=== PATIENT | female | born 1960 | race African-American/Black ===

== ENCOUNTER 2017-06-23 20:19 | Emergency (ER) | payer SELFPAY ==
[~2017-06-23] VITALS: Ht 160 cm; Wt 49.4 kg
[~2017-06-23 20:19] MED LIST: BACTRIM DS TAB1 EAC1 ORAL; CLARITHROMYCIN500 M1 PO; DIFLUCAN150 MG PO; IBUPROFEN600 MG ORAL; KEFLEX500 MG ORAL; NKM; PHENAZOPYRIDIN100 MG ORAL; PREDNISONE20 MG PO
[2017-06-23 20:40] VITALS: BP 156/65
[2017-06-23] MEDS ORDERED: AZITHROMYCIN250 MG ORAL (21:04)
[2017-06-23] MEDS ORDERED: IBUPROFEN600 MG ORAL (21:04)
[2017-06-23 21:16] VITALS: BP 156/65
--- NOTE | 2017-06-25 10:04 | Emergency Room Report ---
History of Present Illness General Chief Complaint: Fever Source: Patient Present Illness HPI 57-year-old female presents to ED for planning of fever bodyaches and throat pain starting this morning. Temp was over 102 in triage. Patient complains of sore throat and bodyaches. Pain is an 8 and 10, throbbing, nonradiating. Denies cough, denies ear ache. I sick contacts or recent travel. No other aggravating or relieving factors. Denies any other associated symptoms Allergies: Coded Allergies: PENICILLINS (Verified Allergy, Mild, Hallucinations, 10/02/12) Patient History Past Medical History: none Past Surgical History: none Pertinent Family History: none Social History: Denies: smoking, alcohol use, drug use Last Menstrual Period: 10 years ago Now: No Immunizations: UTD Reviewed Nursing Documentation: PMH: Agreed, PSxH: Agreed Nursing Documentation-PMH Past Medical History: No Stated History Review of Systems All Other Systems: negative except mentioned in HPI Physical Exam Vital Signs Date Time Temp Pulse Resp B/P (MAP) Pulse Ox O2 Delivery O2 Flow Rate FiO2 06/23/17 20:29 102.6 90 20 156/65 99 Room Air Sp02 EP Interpretation: reviewed, normal General Appearance: no apparent distress, alert, GCS 15, non-toxic Head: normocephalic, atraumatic Eyes: bilateral eye normal inspection, bilateral eye PERRL ENT: hearing grossly normal, no angioedema, normal voice, TMs + canals normal, pharyngeal erythema Neck: full range of motion, supple/symm/no masses Respiratory: chest non-tender, lungs clear, normal breath sounds, speaking full sentences Cardiovascular #1: regular rate, rhythm, no edema Cardiovascular #2: 2+ carotid (R), 2+ carotid (L), 2+ radial (R), 2+ radial (L) , 2+ dorsalis pedis (R), 2+ dorsalis pedis (L) Gastrointestinal: normal bowel sounds, non tender, soft, non-distended, no guarding, no rebound Rectal: deferred Genitourinary: normal inspection, no CVA tenderness Musculoskeletal: back normal, gait/station normal, normal range of motion, non- tender Neurologic: alert, oriented x3, responsive, motor strength/tone normal, sensory intact, speech normal Psychiatric: judgement/insight normal, memory normal, mood/affect normal, no suicidal/homicidal ideation Reflexes: 3+ bicep (R), 3+ bicep (L), 3+ tricep (R), 3+ tricep (L), 3+ knee (R) , 3+ knee (L) Skin: normal color, no rash, warm/dry, well hydrated Lymphatic: no adenopathy Medical Decision Making Diagnostic Impression: Primary Impression: Pharyngitis Qualified Codes: J02.9 - Acute pharyngitis, unspecified ER Course Hospital Course 57-year-old female presents to ED complaining of sore throat + fever Differential diagnoses include: URI, pharyngitis, otitis media Clinical course Patient placed on stretcher. After initial history, physical exam reveals a middle aged female in no acute distress. Bilateral TM unremarkable. There is pharyngeal erythema w/o tonsillar exudates. No lymphadenopathy. Clinical findings consistent with pharyngitis. Reassurance given to parents Given motrin ED for fever Diagnosis - pharyngitis Stable and discharged home with prescriptions for glenn Burns. Instructed to followup with PMD. return to ED if symptoms recur or worsen Last Vital Signs Date Time Temp Pulse Resp B/P (MAP) Pulse Ox O2 Delivery O2 Flow Rate FiO2 06/23/17 21:16 102.6 20 156/65 99 Room Air 06/23/17 20:29 90 Status: improved Disposition: HOME, SELF-CARE Condition: Stable Scripts Azithromycin* (ZITHROMAX*) 250 Mg Tablet 250 MG ORAL DAILY, #6 TAB 0 Refills Take two tablets by mouth today, then take one tablet by mouth daily for four days Prov: DRE MORRISSEY M.D. 06/23/17 Ibuprofen* (MOTRIN*) 600 Mg Tablet 600 MG ORAL Q8H Y for For Pain, #30 TAB 0 Refills Prov: DRE MORRISSEY M.D. 06/23/17 Referrals: NON PHYSICIAN (PCP) Patient Instructions: Pharyngitis, [id number] DRE MORRISSEY M.D. Jun 25, 2017 10:04
== END 2017-06-23 21:16 | disposition home or self-care (01) ==
LOC: EMR 21:10
DX: J02.9 Acute pharyngitis, unspecified (principal); Z88.0 Allergy status to penicillin
CPT/HCPCS: 99283

== ENCOUNTER 2017-08-26 16:36 | Emergency (ER) | payer SELFPAY ==
[~2017-08-26] VITALS: Ht 157.5 cm; Wt 48.5 kg
[~2017-08-26 16:36] MED LIST changes: +AZITHROMYCIN250 MG ORAL
[2017-08-26] MEDS ORDERED: Ketorolac 60mg Inj IM ONE (18:00)
[2017-08-26] MEDS ORDERED: Metoclopramide 10mg/2ml Inj IM ONE (18:00)
[2017-08-26] MEDS ORDERED: DiphenhydrAMINE 50mg/ml Inj IM ONE (18:00)
[2017-08-26] MEDS ORDERED: NAPROXEN500 M2 ORAL (18:27)
[2017-08-26] MEDS ORDERED: ROBAXIN-750750 MG PO (18:27)
[2017-08-26 18:45] VITALS: BP 128/85
--- NOTE | 2017-08-26 19:22 | Emergency Room Report ---
History of Present Illness General Chief Complaint: Headache Source: Patient Present Illness HPI The patient is a 57-year-old female presenting for headache for the past week. She states that she woke up with the pain and it has continued. Pain is a 9/10 dull ache primarily to the left side of the head. She denies any injury to the area. She denies being awoken by the pain. She has not used any pain medications. She denies any other symptoms including nausea, vomiting, fever, chills, neck stiffness, rash, dizziness, blurred vision Allergies: Coded Allergies: PENICILLINS (Verified Allergy, Mild, Hallucinations, 10/02/12) Patient History Past Medical History: see triage record Pertinent Family History: none Reviewed Nursing Documentation: PMH: Agreed, PSxH: Agreed Nursing Documentation-PMH Past Medical History: No Stated History Review of Systems All Other Systems: negative except mentioned in HPI Physical Exam Vital Signs Date Time Temp Pulse Resp B/P (MAP) Pulse Ox O2 Delivery O2 Flow Rate FiO2 08/26/17 16:40 98.1 64 16 131/74 100 Room Air Sp02 EP Interpretation: reviewed, normal General Appearance: no apparent distress, alert, GCS 15, non-toxic Head: normocephalic, atraumatic Eyes: bilateral eye normal inspection, bilateral eye PERRL ENT: hearing grossly normal, normal pharynx, no angioedema, normal voice Neck: full range of motion, no bony tend, supple/symm/no masses, tender lateral - L Respiratory: chest non-tender, lungs clear, normal breath sounds, speaking full sentences Cardiovascular #1: regular rate, rhythm, no edema Musculoskeletal: back normal, gait/station normal, normal range of motion, non- tender Neurologic: alert, oriented x3, responsive, motor strength/tone normal, sensory intact, speech normal Psychiatric: judgement/insight normal, memory normal, mood/affect normal, no suicidal/homicidal ideation Skin: normal color, no rash, warm/dry, well hydrated Medical Decision Making PA Attestation Dr. Brito is my supervising physician. Patient management was discussed with my supervising physician Diagnostic Impression: Primary Impression: Muscle strain Additional Impression: Headache Qualified Codes: R51 - Headache ER Course The patient is a 57-year-old female presenting for headache for the past week Differential diagnoses include but not limited to Migraine, tension headache, hemorrhage, arteritis, muscle strain, among others PE: Afebrile. NAD HEENT: There is tenderness to palpation over the left frontal scalp. No deformity. No visible vessel. No crepitus. No depression. PERRL EOMI There is tenderness to palpation over the left cervical paraspinal muscles. Full active range of motion is intact. No rigidity. No midline tenderness CT scan of head is unremarkable The patient is given IM Toradol, Reglan, and Benadryl. She will be discharged with prescription for Robaxin and naproxen. ER precautions are given CT/MRI/US Diagnostic Results CT/MRI/US Diagnostic Results : Imaging Test Ordered: CT head Impression Unremarkable Last Vital Signs Date Time Temp Pulse Resp B/P (MAP) Pulse Ox O2 Delivery O2 Flow Rate FiO2 08/26/17 18:45 98.4 65 18 128/85 100 Room Air Status: improved Disposition: HOME, SELF-CARE Condition: Improved Scripts Naproxen* (NAPROXEN*) 500 Mg Tablet 500 MG ORAL TWICE A WEEK, #30 TAB 0 Refills Prov: CHAN HERRING 08/26/17 Methocarbamol* (ROBAXIN-750*) 750 Mg Tablet 750 MG PO TID, #21 TAB 0 Refills Prov: CHAN HERRING 08/26/17 Patient Instructions: General Headache Without Cause, Muscle Strain Additional Instructions: I discussed my findings with the patient. All questions and concerns have been answered. Treatment and medication compliance have been addressed. I advised the patient that they need to follow up with PMD in 3-5 days. Return to ED if symptoms worsen, new symptoms arise, or if needed for any reason. Patient verbalized understanding of discharge instructions. CHAN HERRING Aug 26, 2017 19:22
--- NOTE | 2017-08-27 10:21 | Diagnostic Imaging Report ---
Indication: Headache Technique: Contiguous 5 mm thick transaxial imaging of the head obtained in a Siemens Sensation [address] scanner. Soft tissue and bone windows generated. Automatic Exposure Control was utilized. Total Dose length Product (DLP): [address] Dose Index Volume (CTDIvol): 70.38, 0.15 mGy Comparison: none Findings: The size and configuration of the cortical sulci, basal cisterns, and ventricles are within normal limits for age. There is no mass effect, midline shift, or edema identified. There is no evidence of acute hemorrhage or abnormal intra-axial or extra-axial fluid collections. The bones and soft tissues are unremarkable. Impression: No mass effect, edema or acute bleed. [facility] has communicated the preliminary results to the Emergency Department. Their findings are largely concordant with this report. The CT scanner at [facility] is accredited by the [employer] and the scans are performed using dose optimization techniques as appropriate to a performed exam including Automatic Exposure control.
[2017-08-27] MEDS ORDERED: CYCLOBENZAPRINE10 MG ORAL (12:24)
== END 2017-08-26 18:45 | disposition home or self-care (01) ==
LOC: EMR 18:12
DX: T14.8XXA Other injury of unspecified body region, initial encounter (principal); X58.XXXA Exposure to other specified factors, initial encounter; R51 Headache; Z88.0 Allergy status to penicillin
CPT/HCPCS: 70450; 96372; 99284; J1200; J2765

== ENCOUNTER 2019-04-10 14:21 | Emergency (ER) | payer MEDICAID ==
[~2019-04-10] VITALS: Ht 160 cm; Wt 49.9 kg
[~2019-04-10 14:21] MED LIST changes: +CYCLOBENZAPRINE10 MG ORAL; +NAPROXEN500 M2 ORAL; +ROBAXIN-750750 MG PO
[2019-04-10 15:00] VITALS: BP 138/79
--- NOTE | 2019-04-10 15:00 | NUR ---
ED Nurse Note: pt walked in due to right lateral abdominal pain started 6 daysa go. denies trauma, denies nvd. pt was seen by jalyn herman. pt able to give urine sample and blood drawn and sent to lab. will continue to monitor
--- NOTE | 2019-04-10 15:04 | NUR ---
ED Nurse Note: xray on bedside
[2019-04-10 15:27] LABS: APPEARANCE,URINE CLEAR; BILIRUBIN, URINE NEGATIVE (NEGATIVE); COLOR,URINE PALE YELLOW; GLUCOSE, URINE (UA) NEGATIVE (NEGATIVE); KETONES,URINE NEGATIVE (NEGATIVE); LEUKOCYTE ESTERASE ,URINE 1+ (NEGATIVE); NITRITE,URINE NEGATIVE (NEGATIVE); PH,URINE 5 (4.5-8.0); PROTEIN,URINE NEGATIVE (NEGATIVE); UROBILINOGEN,URINE NORMAL MG/DL (0.0-1.0)
--- NOTE | 2019-04-10 15:31 | Diagnostic Imaging Report ---
Indication: Chest pain Comparison: 07/04/2009 A single view chest radiograph was obtained. Findings: Cardiomediastinal appearance is within normal limits for age. The lungs are clear. Pulmonary vascularity is appropriate. The diaphragmatic contour is smooth and costophrenic angles are sharp. No pleural effusions are identified. The bones are unremarkable. Impression: No acute findings
[2019-04-10 15:32] LABS: BASOPHILS % (AUTO) 1.1 % (0.0-2.0); EOSINOPHILS % (AUTO) 6.5 % (0.0-3.0); HEMOGLOBIN 16.6 G/DL (12.0-16.0); LYMPHOCYTES % (AUTO) 24.1 % (20.0-45.0); MEAN CORPUSCULAR VOLUME 88 FL (80-99); MONOCYTES % (AUTO) 9.2 % (1.0-10.0); NEUTROPHILS % (AUTO) 59.1 % (45.0-75.0); PLATELET COUNT 329 K/UL (150-450); RED BLOOD COUNT 5.71 M/UL (4.20-5.40); RED CELL DISTRIBUTION WIDTH 12.2 % (11.6-14.8); WHITE BLOOD COUNT 9.8 K/UL (4.8-10.8)
[2019-04-10 15:40] LABS: ANION GAP 9 mmol/L (5-15); BLOOD UREA NITROGEN 9 mg/dL (7-18); CALCIUM 8.2 MG/DL (8.5-10.1); CARBON DIOXIDE 25 MMOL/L (21-32); CHLORIDE 107 MMOL/L (98-107); CREATININE 0.7 MG/DL (0.55-1.30); POTASSIUM 4.1 MMOL/L (3.5-5.1); SODIUM 141 MMOL/L (136-145)
[2019-04-10 15:49] LABS: ALANINE AMINOTRANSFERASE 15 U/L (12-78); ALBUMIN 4.1 G/DL (3.4-5.0); ALBUMIN/GLOBULIN RATIO 1.6 (1.0-2.7); ALKALINE PHOSPHATASE 34 U/L (46-116); ASPARTATE AMINO TRANSFERASE 13 U/L (15-37); BILIRUBIN,TOTAL 0.2 MG/DL (0.2-1.0); CKMB 0.7 NG/ML (0.0-3.6); CREATINE KINASE 73 U/L (26-308)
[2019-04-10] MEDS ORDERED: Isovue-300 100ml vial INJ PRN (16:15)
--- NOTE | 2019-04-10 16:35 | NUR ---
ED Nurse Note: pt went to ct with tech
--- NOTE | 2019-04-10 16:45 | NUR ---
ED Nurse Note: pt went back from ct
[2019-04-10] MEDS ORDERED: NAPROXEN500 M2 ORAL (17:25)
--- NOTE | 2019-04-10 17:25 | Emergency Room Report ---
History of Present Illness General Chief Complaint: Pain Source: Medical Record Present Illness HPI 58-year-old female with a history of tobacco smoke here complaining of right- sided chest pain without radiation x4 days. Patient reports that chest pain started at rest denying strenuous physical activity and shortness of breath. Rating the pain 3 out of 10 without radiation has not taken medication for pain denying tingling and numbness. Denies dizziness, headache, syncope, abdominal pain, nausea vomiting. Patient reports that she drinks and eats a lot of spicy food and has been a heavy tobacco smoker for years. Patient reports that she occasionally drinks alcohol however is not a daily alcohol drinker. Denies use of illicit drugs. Allergies: Coded Allergies: PENICILLINS (Verified Allergy, Mild, Hallucinations, 10/02/12) Patient History Past Medical History: see triage record Past Surgical History: unable to obtain Pertinent Family History: unable to obtain Last Menstrual Period: menopause Now: No Immunizations: UTD Reviewed Nursing Documentation: PMH: Agreed; PSxH: Agreed Nursing Documentation-PMH Past Medical History: No History, Except For Review of Systems All Other Systems: negative except mentioned in HPI Physical Exam Vital Signs Date Time Temp Pulse Resp B/P (MAP) Pulse Ox O2 Delivery O2 Flow Rate FiO2 04/10/19 14:28 98.4 70 18 138/79 (98) 97 Room Air Sp02 EP Interpretation: reviewed, normal General Appearance: normal inspection, well appearing, no apparent distress Head: normocephalic Eyes: bilateral eye normal inspection, bilateral eye PERRL ENT: normal ENT inspection, hearing grossly normal Neck: normal inspection, full range of motion, supple Respiratory: normal inspection, chest non-tender, lungs clear, no rhonchi, no wheezing Cardiovascular #1: normal inspection, normal peripheral pulses, regular rate, rhythm, no murmur Gastrointestinal: normal inspection, non tender, soft, no mass, no peritonitis , no bruit Genitourinary: no CVA tenderness Musculoskeletal: normal inspection, back normal, digits/nails normal, non- tender Neurologic: normal inspection, alert, oriented x3, responsive Psychiatric: normal inspection, judgement/insight normal Skin: no rash Lymphatic: normal inspection, no adenopathy Medical Decision Making PA Attestation All my diagnosis and treatment plans were reviewed ad discussed with my supervising physician Dr. Hernández Diagnostic Impression: Primary Impression: Renal stone Additional Impression: Colitis ER Course 58-year-old female with a history of tobacco smoke here complaining of right- sided chest pain without radiation x4 days. Patient reports that chest pain started at rest denying strenuous physical activity and shortness of breath. Rating the pain 3 out of 10 without radiation has not taken medication for pain denying tingling and numbness. Denies dizziness, headache, syncope, abdominal pain, nausea vomiting. Patient reports that she drinks and eats a lot of spicy food and has been a heavy tobacco smoker for years. Patient reports that she occasionally drinks alcohol however is not a daily alcohol drinker. Denies use of illicit drugs. Ddx considered but are not limited to: [place], Angina, COPD, GERD, gastritis, colitis, renal stone Vital signs: are WNL, pt. is afebrile H&PE are most consistent with infectious colitis, renal stone ORDERS: EKG, Chest XR, cardiac labs(troponin, CBC, CMP, abdominal CT, naproxen, Flagyl, Cipro ED INTERVENTIONS: None required at this time. DISCHARGE: At this time pt. is stable for d/c to home. Will provide printed patient care instructions, and any necessary prescriptions. Care plan and follow up instructions have been discussed with the patient prior to discharge. I advised the patient to reduce tobacco smoke as well as taking the medication and follow-up with primary care provider for further investigation and also possible referral to legal assistant. Elevated hemoglobin and hematocrit most likely secondary to tobacco smoke EKG Diagnostic Results Rate: normal Rhythm: NSR ST Segments: no acute changes Chest X-Ray Diagnostic Results Chest X-Ray Diagnostic Results : Chest X-Ray Ordered: Yes # of Views/Limited/Complete: 1 View Indication: Chest Pain EP Interpretation: Yes PA Xray: Interpretation reviewed, by supervising MD, and agrees with findings. Interpretation: no consolidation, no effusion, no pneumothorax Impression: No acute disease Electronically Signed by: dimitri levy PA-C CT/MRI/US Diagnostic Results CT/MRI/US Diagnostic Results : Imaging Test Ordered: abd CT no contrast Impression PELVIS: Appendix: No findings to suggest acute appendicitis. Bladder: Unremarkable. No mass. Reproductive: Unremarkable as visualized. ABDOMEN and PELVIS: Intraperitoneal space: Unremarkable. No free air. No significant fluid collection. Bones/joints: No acute fracture. No dislocation. Soft tissues: Unremarkable. Vasculature: Scattered abdominal arterial calcifications without aneurysm or evidence of flow-limiting stenosis. Lymph nodes: Unremarkable. No enlarged lymph nodes. IMPRESSION: Acute diffuse colitis without bowel obstruction or perforation. Radiologist: Fuad Thomson MD Electronically Signed: 04/10/19 18:16 Last Vital Signs Date Time Temp Pulse Resp B/P (MAP) Pulse Ox O2 Delivery O2 Flow Rate FiO2 04/10/19 15:00 98.4 70 18 138/79 97 Room Air Disposition: HOME, SELF-CARE Condition: Stable Scripts Metronidazole* (FLAGYL*) 500 Mg Tablet 500 MG ORAL EVERY 8 HOURS for 7 Days, #21 TAB Prov: Dimitri Camacho 04/10/19 Ciprofloxacin* (CIPRO*) 500 Mg Tablet 500 MG PO BID for 7 Days, #14 TAB Prov: Dimitri Camacho 04/10/19 Naproxen* (NAPROXEN*) 500 Mg Tablet 500 MG ORAL TWICE A DAY, #30 TAB Prov: Dimitri Camacho 04/10/19 Patient Instructions: Colitis, Kidney Stones, [id number] Additional Instructions: Avoid smoking and eating spicy food at that can be the cause of your colitis. At this time the size of the renal stone is small and can be possible however follow-up with your primary care physician for referral to urologist. Take medication as directed avoid strenuous physical activity if worsening symptoms return to the emergency room Dimitri Camacho Apr 10, 2019 17:24
[2019-04-10 17:26] VITALS: BP 125/81
[2019-04-10 17:34] VITALS: BP 125/81
--- NOTE | 2019-04-10 17:34 | NUR ---
ER DISCHARGE NOTE: Patient is cleared to be discharged per ERMD, pt is aox4, on room air, with stable vital signs. pt was given dc and prescription instructions, pt was able to verbalize understanding, pt id band and iv site removed without complications. pt is able to ambulate with steady gait. pt took all belongings.
--- NOTE | 2019-04-10 18:17 | Diagnostic Imaging Report ---
EXAM: CT Abdomen and Pelvis With Intravenous Contrast CLINICAL HISTORY: PAIN TECHNIQUE: Axial computed tomography images of the abdomen and pelvis with intravenous contrast. CTDI is 449.85 mGy and DLP is 449 mGy-cm. One or more of the following dose reduction techniques were used: automated exposure control, adjustment of the mA and/or kV according to patient size, use of iterative reconstruction technique. COMPARISON: none FINDINGS: Lung bases: Unremarkable. No mass. No consolidation. ABDOMEN: Liver: Unremarkable. No mass. Gallbladder and bile ducts: Unremarkable. No calcified stones. No ductal dilation. Pancreas: Unremarkable. No mass. No ductal dilation. Spleen: Unremarkable. No splenomegaly. Adrenals: Unremarkable. No mass. Kidneys and ureters: Nonobstructing 5 mm stone in the inferior pole right kidney. Stomach and bowel: Colonic spasm with wall thickening and mesenteric hyperemia compatible with acute colitis. No obstruction. PELVIS: Appendix: No findings to suggest acute appendicitis. Bladder: Unremarkable. No mass. Reproductive: Unremarkable as visualized. ABDOMEN and PELVIS: Intraperitoneal space: Unremarkable. No free air. No significant fluid collection. Bones/joints: No acute fracture. No dislocation. Soft tissues: Unremarkable. Vasculature: Scattered abdominal arterial calcifications without aneurysm or evidence of flow-limiting stenosis. Lymph nodes: Unremarkable. No enlarged lymph nodes. IMPRESSION: Acute diffuse colitis without bowel obstruction or perforation. <MYCVCSECTION> [employer] 04/10/19 18:23 Verify Receipt Verified receipt with [employer] given to Edgar LAY on 04/10 18:23 (-07:00)
[2019-04-10] MEDS ORDERED: CIPRO500 MG PO ×3 (18:29→19:24)
[2019-04-10] MEDS ORDERED: METRONIDAZOLE500 MG ORAL ×3 (18:29→19:24)
== END 2019-04-10 17:34 | disposition home or self-care (01) ==
LOC: EMR 17:30
DX: N20.0 Calculus of kidney (principal); K52.9 Noninfective gastroenteritis and colitis, unspecified; F17.200 Nicotine dependence, unspecified, uncomplicated; Z88.0 Allergy status to penicillin
CPT/HCPCS: 36415; 71045; 74177; 80053; 80307; 81003; 82550; 82553; 83690; 84484; 85025; 85610; 85730; 86850; 86900; 86901; 93005; 99284; Q9967

== ENCOUNTER 2019-05-06 09:31 | Emergency (ER) | payer MEDICAID ==
[~2019-05-06] VITALS: Ht 160 cm; Wt 49.9 kg
[~2019-05-06 09:31] MED LIST changes: +CIPRO500 MG PO; +METRONIDAZOLE500 MG ORAL
[2019-05-06 09:34] VITALS: BP 133/74
--- NOTE | 2019-05-06 09:40 | NUR ---
ED Nurse Note: Patient walked into ED from home c/o abdominal pain and diarrhea for "a couple of weeks." patient [place] [facility] for same symptoms. patient placed in a gown, provided 4 blankets. patient is alert awake x4 ambulatory steady gait. patient is breathing even and unlabored.
[2019-05-06] MEDS ORDERED: Dicyclomine HCl 10mg/5ml oral soln ORAL ONE (10:15)
[2019-05-06] MEDS ORDERED: Lidocaine 2% Visc 15ml soln ORAL ONE (10:15)
--- NOTE | 2019-05-06 10:53 | NUR ---
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 patient reports her abdominal pain is still there on the right side, will give a little bit more time for the medication to work.
[2019-05-06 11:42] LABS: BASOPHILS % (AUTO) 1.1 % (0.0-2.0); EOSINOPHILS % (AUTO) 8.6 % (0.0-3.0); HEMATOCRIT 48.6 % (37.0-47.0); HEMOGLOBIN 15.8 G/DL (12.0-16.0); LYMPHOCYTES % (AUTO) 25.4 % (20.0-45.0); MEAN CORPUSCULAR VOLUME 88 FL (80-99); MONOCYTES % (AUTO) 7.9 % (1.0-10.0); PLATELET COUNT 342 K/UL (150-450); RED BLOOD COUNT 5.55 M/UL (4.20-5.40); RED CELL DISTRIBUTION WIDTH 12.3 % (11.6-14.8); WHITE BLOOD COUNT 9.8 K/UL (4.8-10.8)
[2019-05-06 11:43] LABS: APPEARANCE,URINE CLEAR; BILIRUBIN, URINE NEGATIVE (NEGATIVE); COLOR,URINE PALE YELLOW; GLUCOSE, URINE (UA) NEGATIVE (NEGATIVE); KETONES,URINE NEGATIVE (NEGATIVE); LEUKOCYTE ESTERASE ,URINE NEGATIVE (NEGATIVE); NITRITE,URINE NEGATIVE (NEGATIVE); PH,URINE 5 (4.5-8.0); PROTEIN,URINE NEGATIVE (NEGATIVE); UROBILINOGEN,URINE NORMAL MG/DL (0.0-1.0)
[2019-05-06 11:49] LABS: ANION GAP 8 mmol/L (5-15); BLOOD UREA NITROGEN 8 mg/dL (7-18); CALCIUM 9.4 MG/DL (8.5-10.1); CARBON DIOXIDE 29 MMOL/L (21-32); CHLORIDE 101 MMOL/L (98-107); CREATININE 0.6 MG/DL (0.55-1.30); POTASSIUM 3.8 MMOL/L (3.5-5.1); SODIUM 138 MMOL/L (136-145)
[2019-05-06 11:53] LABS: ALANINE AMINOTRANSFERASE 29 U/L (12-78); ALBUMIN 4.1 G/DL (3.4-5.0); ALKALINE PHOSPHATASE 75 U/L (46-116); ASPARTATE AMINO TRANSFERASE 21 U/L (15-37); BILIRUBIN,TOTAL 0.4 MG/DL (0.2-1.0)
[2019-05-06] MEDS ORDERED: DICYCLOMINE HCL10 MG ORAL (12:26)
[2019-05-06] MEDS ORDERED: OMEPRAZOLE20 M2 ORAL (12:26)
[2019-05-06] MEDS ORDERED: PREDNISONE20 MG ORAL (12:26)
[2019-05-06 12:39] VITALS: BP 133/74
--- NOTE | 2019-05-06 12:39 | NUR ---
ER DISCHARGE NOTE: Patient is cleared to be discharged per ERMD DR KWON, pt is aox4, on room air, with stable vital signs. pt was given dc and prescription instructions, pt was able to verbalize understanding, pt id band and iv site removed without complications. pt is able to ambulate with steady gait. pt took all belongings.
--- NOTE | 2019-05-08 16:41 | Emergency Room Report ---
History of Present Illness General Chief Complaint: Abdominal Pain Source: Patient Present Illness HPI Patient is a 58-year-old female presented after increased abdominal pain discomfort. Patient reports having increased generalized abdominal pain.She reports having associated nausea as well as diarrhea. She had recently been diagnosed with renal stone as well as colitis. She had been previously prescribed ibuprofen as well as oral antibiotics. Patient reports having increased abdominal discomfort to the epigastric area constant in nature. This did not radiate. She denies any black or bloody stools. She states that she had some episodic diarrhea. She denies any fever. Allergies: Coded Allergies: PENICILLINS (Verified Allergy, Mild, Hallucinations, 10/02/12) Patient History Past Medical History: see triage record Now: No Reviewed Nursing Documentation: PMH: Agreed; PSxH: Agreed Nursing Documentation-PMH Past Medical History: No History, Except For Review of Systems All Other Systems: negative except mentioned in HPI Physical Exam Vital Signs Date Time Temp Pulse Resp B/P (MAP) Pulse Ox O2 Delivery O2 Flow Rate FiO2 05/06/19 09:34 98.1 65 20 133/74 (93) 100 Room Air Sp02 EP Interpretation: reviewed, normal General Appearance: normal inspection, well appearing, no apparent distress, alert, GCS 15 Head: atraumatic ENT: normal ENT inspection, hearing grossly normal, normal voice Neck: normal inspection, full range of motion, supple, no bony tend Respiratory: normal inspection, lungs clear, normal breath sounds, no respiratory distress, no retraction, no wheezing Cardiovascular #1: regular rate, rhythm, no edema Gastrointestinal: normal inspection, normal bowel sounds, non tender, soft, no guarding, no hernia Genitourinary: no CVA tenderness Musculoskeletal: normal inspection, back normal, normal range of motion Neurologic: normal inspection, alert, oriented x3, responsive, 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 Differential diagnosis include was not limited to colitis, bowel obstruction, dehydration among others. Because of complexity of patient's case laboratory testing and imaging studies were ordered. Laboratory testing was unremarkable. Patient was given IV fluids. Patient had been noted to have recent CT imaging which showed some colitis. Patient was offered repeat CT scanning which she declined. Patient given prescription for antispasmodic medications as well as advised to follow-up with GI for colonoscopy. She is advised to return if worse. Labs Test 05/06/19 11:23 White Blood Count 9.8 K/UL (4.8-10.8) Red Blood Count 5.55 M/UL (4.20-5.40) Hemoglobin 15.8 G/DL (12.0-16.0) Hematocrit 48.6 % (37.0-47.0) Mean Corpuscular Volume 88 FL (80-99) Mean Corpuscular Hemoglobin 28.5 PG (27.0-31.0) Mean Corpuscular Hemoglobin Concent 32.5 G/DL (32.0-36.0) Red Cell Distribution Width 12.3 % (11.6-14.8) Platelet Count 342 K/UL (150-450) Mean Platelet Volume 5.8 FL (6.5-10.1) Neutrophils (%) (Auto) 57.0 % (45.0-75.0) Lymphocytes (%) (Auto) 25.4 % (20.0-45.0) Monocytes (%) (Auto) 7.9 % (1.0-10.0) Eosinophils (%) (Auto) 8.6 % (0.0-3.0) Basophils (%) (Auto) 1.1 % (0.0-2.0) Urine Color Pale yellow Urine Appearance Clear Urine pH 5 (4.5-8.0) Urine Specific [place] 1.015 (1.005-1.035) Urine Protein Negative (NEGATIVE) Urine Glucose (UA) Negative (NEGATIVE) Urine Ketones Negative (NEGATIVE) Urine Blood 2+ (NEGATIVE) Urine Nitrite Negative (NEGATIVE) Urine Bilirubin Negative (NEGATIVE) Urine Urobilinogen Normal MG/DL (0.0-1.0) Urine Leukocyte Esterase Negative (NEGATIVE) Urine RBC 2-4 /HPF (0 - 2) Urine WBC 0-2 /HPF (0 - 2) Urine Squamous Epithelial Cells Moderate /LPF (NONE/OCC) Urine Bacteria Few /HPF (NONE) Sodium Level 138 MMOL/L (136-145) Potassium Level 3.8 MMOL/L (3.5-5.1) Chloride Level 101 MMOL/L (98-107) Carbon Dioxide Level 29 MMOL/L (21-32) Anion Gap 8 mmol/L (5-15) Blood Urea Nitrogen 8 mg/dL (7-18) Creatinine 0.6 MG/DL (0.55-1.30) Estimat Glomerular Filtration Rate > 60 mL/min (>60) Glucose Level 102 MG/DL (74-106) Calcium Level 9.4 MG/DL (8.5-10.1) Total Bilirubin 0.4 MG/DL (0.2-1.0) Aspartate Amino Transf (AST/SGOT) 21 U/L (15-37) Alanine Aminotransferase (ALT/SGPT) 29 U/L (12-78) Alkaline Phosphatase 75 U/L (46-116) Total Protein 8.2 G/DL (6.4-8.2) Albumin 4.1 G/DL (3.4-5.0) Globulin 4.1 g/dL Albumin/Globulin Ratio 1.0 (1.0-2.7) Lipase 257 U/L (73-393) Last Vital Signs Date Time Temp Pulse Resp B/P (MAP) Pulse Ox O2 Delivery O2 Flow Rate FiO2 05/06/19 12:39 98.1 20 133/74 100 Room Air 05/06/19 09:56 65 Status: improved Disposition: HOME, SELF-CARE Condition: Stable Scripts Prednisone* (PREDNISONE*) 20 Mg Tablet 40 MG ORAL DAILY, #10 TAB Prov: Miguel Donohue MD 05/06/19 Omeprazole (OMEPRAZOLE) 20 Mg Capsule.dr 20 MG ORAL DAILY, #30 CAP Prov: Miguel Donohue MD 05/06/19 Dicyclomine Hcl* (DICYCLOMINE HCL*) 10 Mg Capsule 10 MG ORAL QID, #20 CAP Prov: Miguel Donohue MD 05/06/19 Referrals: NON PHYSICIAN (PCP) Patient Instructions: Abdominal Pain, Adult Additional Instructions: Follow up with your doctor for GI referral. Return if worse pain, persistent vomitting or other concerns. Miguel Donohue MD May 08, 2019 16:41
== END 2019-05-06 12:39 | disposition home or self-care (01) ==
LOC: EMR 09:54
DX: K52.9 Noninfective gastroenteritis and colitis, unspecified (principal); Z88.0 Allergy status to penicillin
CPT/HCPCS: 36415; 80053; 81003; 83690; 85025; 96374; 99284; J2405; J7040

== ENCOUNTER 2020-01-25 09:59 | Emergency (ER) | payer MEDICAID, OTHER ==
[~2020-01-25] VITALS: Ht 157.5 cm; Wt 49.9 kg
[~2020-01-25 09:59] MED LIST changes: +DICYCLOMINE HCL10 MG ORAL; +OMEPRAZOLE20 M2 ORAL; +PREDNISONE20 MG ORAL
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
[2020-01-25 10:22] VITALS: BP 133/59
[2020-01-25] MEDS ORDERED: NAPROXEN500 M1 ORAL (10:57)
[2020-01-25] MEDS ORDERED: LIDODERM700 M1 TOPIC (10:57)
[2020-01-25] MEDS ORDERED: CYCLOBENZAPRINE10 MG ORAL (10:57)
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
--- NOTE | 2020-01-25 11:36 | Diagnostic Imaging Report ---
Indication: Trauma, mid to low back pain Technique: Spiral acquisitions obtained through the thoracic spine. No IV contrast utilized. Multiplanar reconstructions were generated. Total dose length product 210 mGycm. CTDIvol(s) 4 mGy. Dose reduction achieved using automated exposure control Comparison: none Findings: There is minimal mid thoracic scoliotic deformity, probably related to mild degenerative changes. Bony alignment is otherwise normal. There is a superior endplate compression fracture deformity of the T12 vertebral body with approximately 20% height loss, 3 mm of posterior retropulsion, and visible fracture lines. The remaining vertebral body heights are preserved. No other acute fractures. No dislocations. There is degenerative disc narrowing at T8-9 and T9-10. There is degenerative neural foraminal stenosis, mild to moderate, and T9 bilaterally. There is mild to moderate bilateral neural foraminal stenosis at T9-10. The remaining disc spaces are preserved. No significant disc bulge or protrusion or spinal stenosis. There is multifocal degenerative change of the lower cervical spine. The included extraspinal soft tissues are unremarkable. Impression: Positive for T12 superior endplate compression fracture resulting in 20% height loss and 3 mm of posterior retropulsion. Suspect acute No other acute bony trauma Degenerative changes as described The CT scanner at [facility] is accredited by the [employer] and the scans are performed using protocols designed to limit radiation exposure to as low as reasonably achievable to attain images of sufficient resolution adequate for diagnostic evaluation.
[2020-01-25] MEDS ORDERED: TRAMADOL HCL50 MG ORAL (12:12)
[2020-01-25 12:26] VITALS: BP 127/71
== END 2020-01-25 12:27 | disposition home or self-care (01) ==
LOC: EMR 10:28
DX: S22.089A Unspecified fracture of T11-T12 vertebra, initial encounter for closed fracture (principal); S13.4XXA Sprain of ligaments of cervical spine, initial encounter; S39.012A Strain of muscle, fascia and tendon of lower back, initial encounter; V43.52XA Car driver injured in collision with other type car in traffic accident, initial encounter; Y92.410 Unspecified street and highway as the place of occurrence of the external cause; Z88.0 Allergy status to penicillin; F17.200 Nicotine dependence, unspecified, uncomplicated
CPT/HCPCS: 72128; 72131; Z7502; 99284